=== PATIENT | male | born 1975 | race Caucasian/White ===

== ENCOUNTER 2017-12-26 17:12 | Emergency (ER) | payer OTHER ==
[~2017-12-26] VITALS: Ht 175.3 cm; Wt 68.0 kg
[~2017-12-26 17:12] MED LIST: LOSA50TA PO
[2017-12-26 17:29] VITALS: BP 109/57; PULSE 112; RESP 16; O2SAT 95
[2017-12-26 18:00] LABS: AUTOMATED NEUTROPHIL # 6.3 TH/MM3 (1.8-7.7); BASOPHIL # 0.1 TH/MM3 (0-0.2); BASOPHIL % 1.4 % (0.0-2.0); EOSINOPHIL # 0.1 TH/MM3 (0-0.4); EOSINOPHIL % 0.7 % (0.0-4.0); HEMATOCRIT 26.8 % (39.0-51.0); HEMOGLOBIN 9.4 GM/DL (13.0-17.0); LYMPH % 22.3 % (9.0-44.0); LYMPHOCYTE # 2.2 TH/MM3 (1.0-4.8); MEAN CORPUSCULAR HEMOGLOBIN 40.3 PG (27.0-34.0); MEAN PLATELET VOLUME 9.8 FL (7.0-11.0); MONO % 12.5 % (0.0-8.0); MONOCYTE # 1.3 TH/MM3 (0-0.9); NEUT % 63.1 % (16.0-70.0); PLATELET COUNT 100 TH/MM3 (150-450); RED BLOOD COUNT 2.33 MIL/MM3 (4.50-5.90); RED CELL DISTRIBUTION WIDTH 16.7 % (11.6-17.2); WHITE BLOOD COUNT 10.1 TH/MM3 (4.0-11.0)
[2017-12-26 18:19] LABS: ALBUMIN 2.3 GM/DL (3.4-5.0); ALT (GPT) 21 U/L (12-78); AST (GOT) 96 U/L (15-37); BICARBONATE 15.9 MEQ/L (21.0-32.0); BLOOD UREA NITROGEN 14 MG/DL (7-18); CALCIUM 7.7 MG/DL (8.5-10.1); CHLORIDE 106 MEQ/L (98-107); CREATININE 1.14 MG/DL (0.60-1.30); GLOMERULAR FILTRATION RATE 71 ML/MIN (>89); GLUCOSE,RANDOM 92 MG/DL (74-106); MAGNESIUM 2.2 MG/DL (1.5-2.5); SODIUM (NA) 135 MEQ/L (136-145)
--- NOTE | 2017-12-26 18:40 | RADRPT ---
EXAM DATE: 12/26/2017 6:36 PM EDT AGE/SEX: 42 years / Male INDICATIONS: Cephalgia. CLINICAL DATA: This is the patient's initial encounter. Patient reports that signs and symptoms have been present for 1 day and indicates a pain score of 3/10. MEDICAL/SURGICAL HISTORY: Hypertension. Cirrhosis. None. RADIATION DOSE: 37.54 CTDI (mGy) COMPARISON: No prior [place] exams available for comparison. TECHNIQUE: CT of the head without contrast. Using automated exposure control and adjustment of the mA and/or kV according to patient size, radiation dose was kept as low as reasonably achievable to ob tain optimal diagnostic quality images. FINDINGS: Cerebrum: The ventricles are normal for age. No evidence of midline shift, mass lesion, hemorrhage or acute infarction. No extraaxial fluid collections are seen. Posterior Fossa: The cerebellum and brainstem are intact. The 4th ventricle is midline. The cerebe llopontine angle is unremarkable. Extracranial: The visualized portion of the orbits is intact. Skull: The calvaria is intact. No evidence of skull fracture. CONCLUSION: 1. Negative noncontrast head CT. Electronically signed by: Nikita Villa MD 12/26/2017 6:38 PM EDT
[2017-12-26 18:45] LABS: ALKALINE PHOSPHATASE 113 U/L (45-117); TOTAL BILIRUBIN ADULT 23.4 MG/DL (0.2-1.0); TOTAL PROTEIN 6.2 GM/DL (6.4-8.2)
[2017-12-26 18:46] LABS: ACETAMINOPHEN LESS THAN 2.0 MCG/ML (10.0-30.0)
--- NOTE | 2017-12-26 18:56 | PD ---
HPI Chief Complaint: Psychiatric Symptoms Time Seen by Provider: 17:47 Travel History International Travel<30 days: No Contact w/Intl Traveler<30days: No Traveled to known affect area: No History of Present Illness HPI 42yo M presented to the ED under Ellis Act following an event with his brother and friend. The pt is a poor historian, but reports that his friend was concerned because he was displaying bizarre behaviors at breakfast. When he got home, he preceded to drink a couple of beers and shots, which his friend and brother did not agree with due to his recent diagnosis of cirrhosis and jaundice. Pt did display concern of people being in the room observing the interview while taking his history. He states that before today, he has not has a drink in 3weeks. Pt denies any history of mental illness, auditory or visual hallucinations, suicidal or homicidal thoughts. Pt denies any headaches, weakness, chest pain, SOB, abdominal pain, nausea, vomiting or changes in bowel movements. PFSH Past Medical History Cirrhosis: Yes Medical other: Yes (jaundice) Tetanus Vaccination: Unknown Influenza Vaccination: No ?: Not Past Surgical History Other Surgery: Yes (tooth implant removed five years ago) Social History Alcohol Use: Yes (quit for two weeks then started drinking again today h/o alcoholism) Tobacco Use: Yes Substance Use: No Allergies-Medications (Allergen,Severity, Reaction): Coded Allergies: No Known Allergies (Unverified Adverse Reaction, Unknown, 12/26/17) Reported Meds & Prescriptions Reported Meds & Active Scripts Active Active Prescriptions or Reported Medications Unobtainable Review of Systems ROS Limitations: Poor Historian Except as stated in HPI: all other systems reviewed are Neg Physical Exam Exam Limitations: Poor Historian Narrative GENERAL: well developed and well nourished in no acute distress. Alert and oriented x3. Poor historian. SKIN: Warm and dry with overt jaundice. Spider angioma on chest wall. Mild palmar erythema. EYES: Pupils equal and round. Scleral icterus bilaterally. No injection or drainage. ENT: No nasal bleeding or discharge. Mucous membranes pink and moist. CARDIOVASCULAR: Regular rate and rhythm. No murmurs, rubs or gallops. RESPIRATORY: No accessory muscle use. Clear to auscultation. Breath sounds equal bilaterally. GASTROINTESTINAL: Abdomen soft, non-tender, nondistended. Hepatic and splenic margins not palpable. MUSCULOSKELETAL: Extremities without clubbing, cyanosis, or edema. No obvious deformities. Full ROM of the upper and lower extremities bilaterally. NEUROLOGICAL: Awake and alert. No obvious cranial nerve deficits. Motor grossly within normal limits. Five out of 5 muscle strength in the arms and legs. Normal speech. PSYCHIATRIC: Appropriate mood and affect; insight and judgment questionable. Data Data Last Documented VS Vital Signs Date Time Temp Pulse Resp B/P (MAP) Pulse Ox O2 Delivery O2 Flow Rate FiO2 12/26/17 17:29 112 16 109/57 (74) 95 Orders Orders Complete Blood Count With Diff (12/26/17 17:41) Comprehensive Metabolic Panel (12/26/17 17:41) Prothrombin Time / Inr (Pt) (12/26/17 17:41) Act Partial Throm Time (Ptt) (12/26/17 17:41) Lipase (12/26/17 17:41) Urinalysis - C+S If Indicated (12/26/17 17:41) Magnesium (Mg) (12/26/17 17:41) Ammonia (12/26/17 17:41) Drug Screen, Random Urine (12/26/17 17:41) Alcohol (Ethanol) (12/26/17 17:41) Salicylates (Aspirin) (12/26/17 17:41) Tylenol (Acetaminophen) (12/26/17 17:41) Ct Brain W/O Iv Contrast(Rout) (12/26/17 ) Labs Laboratory Tests Test 12/26/17 17:21 White Blood Count 10.1 TH/MM3 Red Blood Count 2.33 MIL/MM3 Hemoglobin 9.4 GM/DL Hematocrit 26.8 % Mean Corpuscular Volume 115.0 FL Mean Corpuscular Hemoglobin 40.3 PG Mean Corpuscular Hemoglobin Concent 35.0 % Red Cell Distribution Width 16.7 % Platelet Count 100 TH/MM3 Mean Platelet Volume 9.8 FL Neutrophils (%) (Auto) 63.1 % Lymphocytes (%) (Auto) 22.3 % Monocytes (%) (Auto) 12.5 % Eosinophils (%) (Auto) 0.7 % Basophils (%) (Auto) 1.4 % Neutrophils # (Auto) 6.3 TH/MM3 Lymphocytes # (Auto) 2.2 TH/MM3 Monocytes # (Auto) 1.3 TH/MM3 Eosinophils # (Auto) 0.1 TH/MM3 Basophils # (Auto) 0.1 TH/MM3 CBC Comment DIFF FINAL Differential Comment Blood Urea Nitrogen 14 MG/DL Creatinine 1.14 MG/DL Random Glucose 92 MG/DL Total Protein 6.2 GM/DL Albumin 2.3 GM/DL Calcium Level 7.7 MG/DL Magnesium Level 2.2 MG/DL Alkaline Phosphatase 113 U/L Aspartate Amino Transf (AST/SGOT) 96 U/L Alanine Aminotransferase (ALT/SGPT) 21 U/L Total Bilirubin 23.4 MG/DL Sodium Level 135 MEQ/L Potassium Level 3.7 MEQ/L Chloride Level 106 MEQ/L Carbon Dioxide Level 15.9 MEQ/L Anion Gap 13 MEQ/L Estimat Glomerular Filtration Rate 71 ML/MIN Ammonia 33 MCMOL/L Lipase 413 U/L Salicylates Level LESS THAN 1.7 MG/DL Acetaminophen Level LESS THAN 2.0 MCG/ML Ethyl Alcohol Level 22 MG/DL MDM Medical Decision Making Medical Screen Exam Complete: Yes Emergency Medical Condition: Yes Medical Record Reviewed: Yes Interpretation(s) CBC & BMP Diagram 12/26/17 17:21 Total Protein 6.2 L, Albumin 2.3 L, Calcium Level 7.7 L, Magnesium Level 2.2, Alkaline Phosphatase 113, Aspartate Amino Transf (AST/SGOT) 96 H, Alanine Aminotransferase (ALT/SGPT) 21, Total Bilirubin 23.4 H Last Impressions Head CT 12/26/17 0000 Signed Impressions: CONCLUSION: 1. Negative noncontrast head CT. ammonia of 33 Differential Diagnosis Depression versus suicidal ideation versus anxiety versus adjustment disorder versus mood disorder versus bipolar disorder versus schizophrenia versus paranoid disorder versus psychosis versus substance abuse versus alcohol abuse versus alcohol induced psychosis versus homicidality addition versus cutting versus personality disorder versus encephalopathy versus withdrawal Narrative Course 42-year-old presents to the ED for evaluation of Ellis act. Patient was properly examined and was found to have signs and symptoms consistent with general disease appears to be chronic. He does have a history of cirrhosis. Unclear if the symptoms are secondary to versus psychiatric. Labs were done and showed essentially slight elevated ammonia. CT of the head was negative. This was discussed with my attending Dr Jacobo who was made aware of findings and recommends medical clearance and evaluation by psychiatric. Diagnosis Primary Impression: Mood disorder Scripts Unable to Obtain Active Prescriptions or Reported Meds Paulino Orourke Dec 26, 2017 18:56
[2017-12-26 19:59] VITALS: BP 103/56; PULSE 105; RESP 18; TEMP 98.2; O2SAT 96
[2017-12-26 21:51] LABS: BILIRUBIN, URINE LARGE (NEG); BLOOD, URINE NEG (NEG); GLUCOSE,URINE NEG (NEG); HYALINE CAST, URINE 2 /lpf (RARE); KETONE, URINE TRACE mg/dL (NEG); MUCUS URINE FEW /lpf (OCC); NITRITE,URINE NEG (NEG); SQUAMOUS EPITHELIAL CELL URINE <1 /hpf (0-5); URINE LEUKOCYTE ESTERASE NEG (NEG)
[2017-12-26 21:52] LABS: URINE COLOR DARK-BROWN (YELLW/STRAW)
[2017-12-26 22:10] VITALS: BP 112/63; PULSE 108; RESP 18; TEMP 98.8; O2SAT 98
[2017-12-26] MEDS ORDERED: ONDANSETRON ODT 4 MG TAB PO PRN (22:15)
[2017-12-26] MEDS ORDERED: LORazepam 2 MG TAB PO PRN (22:15)
[2017-12-26] MEDS ORDERED: FLUMAZENIL 0.5 MG/5 ML VIAL IV PUSH PRN (22:15)
[2017-12-26] MEDS ORDERED: LORazepam 1 MG TAB PO PRN (22:15)
[2017-12-26] MEDS ORDERED: LORazepam 2 MG/ML VIAL IV PUSH PRN ×4 (22:15)
[2017-12-26] MEDS ORDERED: ACETAMINOPHEN 325 MG TAB PO PRN (22:15)
[2017-12-27 00:50] VITALS: BP 102/54; PULSE 100; RESP 18; TEMP 99.8; O2SAT 95
[2017-12-27 03:07] VITALS: BP 96/53; PULSE 100; RESP 18; TEMP 99.4; O2SAT 94
[2017-12-27 07:00] VITALS: BP 102/57; PULSE 101; RESP 18; TEMP 99.6; O2SAT 96
--- NOTE | 2017-12-27 07:31 | PD ---
History of Present Illness Chief Complaint: Psychiatric Symptoms Time Seen by Provider: 06:48 Travel History International Travel<30 Days: No Contact w/Intl Traveler<30days: No Known affected area: No Legal Status Legal Status: Ellis Act Ellis Act Signed By: Main Hernandez History of Present Illness: Patient is a 42-year-old single male no children employed as aircraft maintenance technician at [employer]. He was placed under a Ellis act by his family. Ellis act states, " Filiberto Gates is refusing to take care of himself and is continuing to consume alcohol. Filiberto has severe jaundice and is not taking his meds. Filiberto is also hallucinating." Filiberto has a long history of alcohol use. Prior to September he was drinking 6-8 beers and shots daily. In September he had severe abd pain and was diagnosed with liver cirrhosis. He went through a treatment program through [facility] which has changed his diet and way of living. He states he owns a huge home, has a new car and lives with his animals in [place]. He states , " I have a good life and I am working on improving my health." He states that yesterday he was sitting at the pool by his backyard and he admits to having a beer. He states, " I am not drinking out of contol, but will occassionally have a beer." His mother and stepfather flew in from [place], [place] yesterday and when they saw him at the pool with a beer they called the police and placed him under a Ellis Act. He is not delusional or having hallucinations. Denies AVH. He endorses no suicidal ideations. His alcohol level on arrival was 22. Collateral : I asked the patient if I could call his family , Alon Provo (Stepfather) or Vidal Aaron (mother) at [phone] and he requested that his family not be contacted. He states that yesterday when he arrived they were all laughing about how easy it was to get him admitted into the hospital. He states that he is very independent and will call an Uber to get home. Chart reviewed and discussed with nursing staff. Patient is in [facility] in Room [facility]. He is alert and oriented. He is very articulate and personable. He is jaundice. He is well kept and groomed. His fund of knowledge is normal. He walks with a steady gait. He speech in normal tone and volume. He has good recent and remote recall. He thought process is concrete. He has good concentration. No abnormal thought content for delusions or hallucinations. Based on the patients presentation, he does not meet criteria for admission. We discussed programs like the [facility] in [facility] . He lives in [place] and will explore programs in his area. He knows about AA, but due to his high profile position, he will seek private help. He is low risk for self harm or harming others, I will lift the Ellis Act. Dx: Mood Disorder, Alcohol induced: History of Alcohol Abuse PFSH Past Medical History Cirrhosis: Yes Medical other: Yes (jaundice) Tetanus Vaccination: Unknown Influenza Vaccination: No ?: Not Past Surgical History Other Surgery: Yes (tooth implant removed five years ago) Psychiatric History Psychiatric History Reports no psychiatric care in his past or hospital admission related to mental illness. Hx Psychiatric Treatment: PT DENIES History of Inpatient Treatment: No Social History Hx Alcohol Use: Yes (quit for two weeks then started drinking again today h/o alcoholism) Hx Tobacco Use: Yes Hx Substance Use: Yes (ALCOHOL ABUSE) Substance Use Type: Alcohol Other Substances Used: UNKNOWN Hx of Substance Use Treatment: No Allergies-Medications (Allergen,Severity, Reaction): Coded Allergies: No Known Allergies (Unverified Adverse Reaction, Unknown, 12/26/17) Reported Meds & Prescriptions Reported Meds & Active Scripts Active Active Prescriptions or Reported Medications Unobtainable Mental Status Examination Appearance: Appropriate Consciousness: Alert Orientation: x4 Motor Activity: Normal gait Speech: Unremarkable Language: Adequate Fund of Knowledge: Adequate Attention and Concentration: Adequate Memory: Unremarkable Mood: Appropriate Affect: Appropriate Thought Process & Associations: Intact Thought Content: Appropriate Hallucination Type: None Delusion Type: None Suicidal Ideation: No Suicidal Plan: No Suicidal Intention: No Homicidal Ideation: No Homicidal Plan: No Homicidal Intention: No Insight: Adequate Judgment: Adequate MDM Medical Decision Making Assessment/Plan Patient is a 42 year old male diagnosed with liver cirrhosis due to a long history of alcohol abuse. Mother and stepfather flew in from [place], [place] and found him at his pool with a beer. They called the police and had him placed under a Ellis Act. It appears that they are trying to get him help regarding his drinking. Patient is alert and oriented. He is articulate and very insightful. He is not delusional or hallucinating. He does not endorse suicidal ideations. He is at low risk for self harm or harming others. He does not meet admission criteria. Ellis Act lifted. Patient is currently under care for his liver cirrhosis and using private means to address his needs related to his alcohol abuse in the past. Orders Orders Complete Blood Count With Diff (12/26/17 17:41) Comprehensive Metabolic Panel (12/26/17 17:41) Prothrombin Time / Inr (Pt) (12/26/17 17:41) Act Partial Throm Time (Ptt) (12/26/17 17:41) Lipase (12/26/17 17:41) Urinalysis - C+S If Indicated (12/26/17 17:41) Magnesium (Mg) (12/26/17 17:41) Ammonia (12/26/17 17:41) Drug Screen, Random Urine (12/26/17 17:41) Alcohol (Ethanol) (12/26/17 17:41) Salicylates (Aspirin) (12/26/17 17:41) Tylenol (Acetaminophen) (12/26/17 17:41) Ct Brain W/O Iv Contrast(Rout) (12/26/17 ) Psych Screen (12/26/17 21:42) Alcohol Withdrawal Asmt-Ciwa ONCE (12/26/17 22:03) Ondansetron Odt (Zofran Odt) (12/26/17 22:15) Acetaminophen (Tylenol) (12/26/17 22:15) Flumazenil Inj (Romazicon Inj) (12/26/17 22:15) Lorazepam (Ativan) (12/26/17 22:15) Lorazepam Inj (Ativan Inj) (12/26/17 22:15) Lorazepam (Ativan) (12/26/17 22:15) Lorazepam Inj (Ativan Inj) (12/26/17 22:15) Lorazepam Inj (Ativan Inj) (12/26/17 22:15) Lorazepam Inj (Ativan Inj) (12/26/17 22:15) Diet Regular Basic (12/27/17 Breakfast) Results Vital Signs Date Time Temp Pulse Resp B/P (MAP) Pulse Ox O2 Delivery O2 Flow Rate FiO2 12/27/17 03:07 99.4 100 18 96/53 (67) 94 Room Air 12/27/17 00:50 99.8 100 18 102/54 (70) 95 Room Air 12/26/17 22:10 98.8 108 18 112/63 (79) 98 Room Air 12/26/17 19:59 98.2 105 18 103/56 (72) 96 Room Air 12/26/17 17:29 112 16 109/57 (74) 95 Laboratory Tests Test 12/26/17 17:21 12/26/17 21:10 White Blood Count 10.1 Red Blood Count 2.33 Hemoglobin 9.4 Hematocrit 26.8 Mean Corpuscular Volume 115.0 Mean Corpuscular Hemoglobin 40.3 Mean Corpuscular Hemoglobin Concent 35.0 Red Cell Distribution Width 16.7 Platelet Count 100 Mean Platelet Volume 9.8 Neutrophils (%) (Auto) 63.1 Lymphocytes (%) (Auto) 22.3 Monocytes (%) (Auto) 12.5 Eosinophils (%) (Auto) 0.7 Basophils (%) (Auto) 1.4 Neutrophils # (Auto) 6.3 Lymphocytes # (Auto) 2.2 Monocytes # (Auto) 1.3 Eosinophils # (Auto) 0.1 Basophils # (Auto) 0.1 CBC Comment DIFF FINAL Differential Comment Blood Urea Nitrogen 14 Creatinine 1.14 Random Glucose 92 Total Protein 6.2 Albumin 2.3 Calcium Level 7.7 Magnesium Level 2.2 Alkaline Phosphatase 113 Aspartate Amino Transf (AST/SGOT) 96 Alanine Aminotransferase (ALT/SGPT) 21 Total Bilirubin 23.4 Sodium Level 135 Potassium Level 3.7 Chloride Level 106 Carbon Dioxide Level 15.9 Anion Gap 13 Estimat Glomerular Filtration Rate 71 Ammonia 33 Lipase 413 Salicylates Level LESS THAN 1.7 Acetaminophen Level LESS THAN 2.0 Ethyl Alcohol Level 22 Urine Color DARK-BROWN Urine Turbidity HAZY Urine pH 6.0 Urine Specific [place] 1.021 Urine Protein 30 Urine Glucose (UA) NEG Urine Ketones TRACE Urine Occult Blood NEG Urine Nitrite NEG Urine Bilirubin LARGE Urine Urobilinogen 2.0 Urine Leukocyte Esterase NEG Urine Squamous Epithelial Cells <1 Urine Hyaline Casts 2 Urine Mucus FEW Microscopic Urinalysis Comment CULT NOT INDICATED Urine Opiates Screen NEG Urine Barbiturates Screen NEG Urine Amphetamines Screen NEG Urine Benzodiazepines Screen POS Urine Cocaine Screen NEG Urine Cannabinoids Screen NEG Diagnosis Primary Impression: Alcohol-induced mood disorder Additional Impression: History of alcohol abuse Prescriptions Unable to Obtain Active Prescriptions or Reported Meds Disposition: 01 DISCHARGE HOME Condition: Stable Problem Qualifiers Brenda Mcfarland Dec 27, 2017 07:31
--- NOTE | 2017-12-27 08:27 | PD ---
Physical Exam Narrative 42yo M who was previously medically clear has been evaluated by psych and clear by psych. Caleb Act lifted. I was ask to write a discharge note. Please see previous provider's note for further details. Data Data Last Documented VS Vital Signs Date Time Temp Pulse Resp B/P (MAP) Pulse Ox O2 Delivery O2 Flow Rate FiO2 12/27/17 07:00 99.6 101 18 102/57 (72) 96 Room Air Orders Orders Complete Blood Count With Diff (12/26/17 17:41) Comprehensive Metabolic Panel (12/26/17 17:41) Prothrombin Time / Inr (Pt) (12/26/17 17:41) Act Partial Throm Time (Ptt) (12/26/17 17:41) Lipase (12/26/17 17:41) Urinalysis - C+S If Indicated (12/26/17 17:41) Magnesium (Mg) (12/26/17 17:41) Ammonia (12/26/17 17:41) Drug Screen, Random Urine (12/26/17 17:41) Alcohol (Ethanol) (12/26/17 17:41) Salicylates (Aspirin) (12/26/17 17:41) Tylenol (Acetaminophen) (12/26/17 17:41) Ct Brain W/O Iv Contrast(Rout) (12/26/17 ) Psych Screen (12/26/17 21:42) Alcohol Withdrawal Asmt-Ciwa ONCE (12/26/17 22:03) Ondansetron Odt (Zofran Odt) (12/26/17 22:15) Acetaminophen (Tylenol) (12/26/17 22:15) Flumazenil Inj (Romazicon Inj) (12/26/17 22:15) Lorazepam (Ativan) (12/26/17 22:15) Lorazepam Inj (Ativan Inj) (12/26/17 22:15) Lorazepam (Ativan) (12/26/17 22:15) Lorazepam Inj (Ativan Inj) (12/26/17 22:15) Lorazepam Inj (Ativan Inj) (12/26/17 22:15) Lorazepam Inj (Ativan Inj) (12/26/17 22:15) Diet Regular Basic (12/27/17 Breakfast) Labs Laboratory Tests Test 12/26/17 17:21 12/26/17 21:10 White Blood Count 10.1 TH/MM3 Red Blood Count 2.33 MIL/MM3 Hemoglobin 9.4 GM/DL Hematocrit 26.8 % Mean Corpuscular Volume 115.0 FL Mean Corpuscular Hemoglobin 40.3 PG Mean Corpuscular Hemoglobin Concent 35.0 % Red Cell Distribution Width 16.7 % Platelet Count 100 TH/MM3 Mean Platelet Volume 9.8 FL Neutrophils (%) (Auto) 63.1 % Lymphocytes (%) (Auto) 22.3 % Monocytes (%) (Auto) 12.5 % Eosinophils (%) (Auto) 0.7 % Basophils (%) (Auto) 1.4 % Neutrophils # (Auto) 6.3 TH/MM3 Lymphocytes # (Auto) 2.2 TH/MM3 Monocytes # (Auto) 1.3 TH/MM3 Eosinophils # (Auto) 0.1 TH/MM3 Basophils # (Auto) 0.1 TH/MM3 CBC Comment DIFF FINAL Differential Comment Blood Urea Nitrogen 14 MG/DL Creatinine 1.14 MG/DL Random Glucose 92 MG/DL Total Protein 6.2 GM/DL Albumin 2.3 GM/DL Calcium Level 7.7 MG/DL Magnesium Level 2.2 MG/DL Alkaline Phosphatase 113 U/L Aspartate Amino Transf (AST/SGOT) 96 U/L Alanine Aminotransferase (ALT/SGPT) 21 U/L Total Bilirubin 23.4 MG/DL Sodium Level 135 MEQ/L Potassium Level 3.7 MEQ/L Chloride Level 106 MEQ/L Carbon Dioxide Level 15.9 MEQ/L Anion Gap 13 MEQ/L Estimat Glomerular Filtration Rate 71 ML/MIN Ammonia 33 MCMOL/L Lipase 413 U/L Salicylates Level LESS THAN 1.7 MG/DL Acetaminophen Level LESS THAN 2.0 MCG/ML Ethyl Alcohol Level 22 MG/DL Urine Color DARK-BROWN Urine Turbidity HAZY Urine pH 6.0 Urine Specific [place] 1.021 Urine Protein 30 mg/dL Urine Glucose (UA) NEG mg/dL Urine Ketones TRACE mg/dL Urine Occult Blood NEG Urine Nitrite NEG Urine Bilirubin LARGE Urine Urobilinogen 2.0 MG/DL Urine Leukocyte Esterase NEG Urine Squamous Epithelial Cells <1 /hpf Urine Hyaline Casts 2 /lpf Urine Mucus FEW /lpf Microscopic Urinalysis Comment CULT NOT INDICATED Urine Opiates Screen NEG Urine Barbiturates Screen NEG Urine Amphetamines Screen NEG Urine Benzodiazepines Screen POS Urine Cocaine Screen NEG Urine Cannabinoids Screen NEG MDM Supervised Visit with OPHELIA: Yes Diagnosis Primary Impression: Alcohol-induced mood disorder Additional Impression: History of alcohol abuse Patient Instructions: General Instructions Departure Forms: Tests/Procedures Additional Instruction: Please follow up with your primary care physician. Return to the ED if symptoms worsen. Med/Other Pt SpecificInfo: No Change to Meds Scripts Unable to Obtain Active Prescriptions or Reported Meds Disposition: 01 DISCHARGE HOME Condition: Stable Radha Tate DO Dec 27, 2017 08:27
== END 2017-12-27 08:33 | disposition home or self-care (01) ==
LOC: NEPE 17:12 → NEPJ 12-27 08:33
DX: F10.94 Alcohol use, unspecified with alcohol-induced mood disorder (principal); F19.90 Other psychoactive substance use, unspecified, uncomplicated; Y90.1 Blood alcohol level of 20-39 mg/100 ml; K74.60 Unspecified cirrhosis of liver; Z72.0 Tobacco use
CPT/HCPCS: 70450; 80053; 80307; 81001; 82140; 83690; 83735; 85025; 99284